=== PATIENT | female | born 1960 | race African-American/Black ===

== ENCOUNTER 2017-02-08 11:54 | Emergency (ER) | payer MEDICAID ==
[~2017-02-08] VITALS: Ht 154.9 cm; Wt 55.0 kg
[2017-02-08] MEDS ORDERED: METHOCARBAMOL 500MG TABLET PO ONE (19:00)
[2017-02-08] MEDS ORDERED: KETOROLAC 30MG/ML VIAL IM ONE (19:00)
[2017-02-08 19:43] VITALS: BP 146/72
== END 2017-02-08 19:44 | disposition home or self-care (01) ==
LOC: ER 11:54
DX: R52 Pain, unspecified (principal); V73.6XXA Passenger on bus injured in collision with car, pick-up truck or van in traffic accident, initial encounter; Y93.89 Activity, other specified; Y92.89 Other specified places as the place of occurrence of the external cause; Y99.8 Other external cause status
CPT/HCPCS: 96372; 99283; J1885; Z7610

== ENCOUNTER 2020-10-13 09:06 | Emergency (ER) | payer MEDICAID ==
[~2020-10-13] VITALS: Ht 154.9 cm; Wt 48.0 kg
[2020-10-13 09:13] VITALS: BP 150/80
[2020-10-13] MEDS ORDERED: CYCL5TAB MT (10:28)
[2020-10-13] MEDS ORDERED: NAPR-681 PO (10:28)
== END 2020-10-13 10:38 | disposition home or self-care (01) ==
LOC: ER 09:06
DX: M54.5 Low back pain (principal); M19.90 Unspecified osteoarthritis, unspecified site; Z88.6 Allergy status to analgesic agent
CPT/HCPCS: 99282

== ENCOUNTER 2022-04-24 12:45 | Emergency (ER) | payer MEDICAID ==
[~2022-04-24] VITALS: Ht 154.9 cm; Wt 50.0 kg
[~2022-04-24 12:45] MED LIST: CYCL5TAB MT; NAPR-681 PO
[2022-04-24 12:58] VITALS: BP 148/83
== END 2022-04-24 20:52 | disposition left against medical advice (07) ==
LOC: ER 13:30
DX: Z53.21 Procedure and treatment not carried out due to patient leaving prior to being seen by health care provider (principal)

== ENCOUNTER 2022-05-01 09:54 | Emergency (ER) | payer MEDICAID, OTHER ==
[~2022-05-01] VITALS: Ht 165.1 cm; Wt 60.0 kg
[2022-05-01 10:13] VITALS: BP 152/84
[2022-05-01] MEDS ORDERED: ACETAMINOPHEN 325MG TABLET PO ONE (10:45)
[2022-05-01] MEDS ORDERED: CYCL10TA21 MT (11:45)
[2022-05-01] MEDS ORDERED: TOPUD MT (11:45)
== END 2022-05-01 11:55 | disposition home or self-care (01) ==
LOC: ER 09:54
DX: S10.83XA Contusion of other specified part of neck, initial encounter (principal); S20.229A Contusion of unspecified back wall of thorax, initial encounter; R51.9 Headache, unspecified; W20.1XXA Struck by object due to collapse of building, initial encounter; Y93.89 Activity, other specified; Y92.012 Bathroom of single-family (private) house as the place of occurrence of the external cause
CPT/HCPCS: 72040; 99283